=== PATIENT | male | born 1980 | race Caucasian/White ===

== ENCOUNTER → 2016-09-22 | Outpatient (CLI) | payer SELFPAY ==
[2016-09-22 17:16] VITALS: BP 130/75
== END ==
LOC: MHUC 15:58
PROVIDERS: ATTEND Physician Assistant
DX: H66.002 Acute suppurative otitis media without spontaneous rupture of ear drum, left ear (principal); H10.89 Other conjunctivitis
CPT/HCPCS: 99213